=== PATIENT | female | born 1985 | race Caucasian/White ===

== ENCOUNTER 2020-12-09 11:52 | Inpatient (IN) ==
[2020-12-09] MEDS ORDERED: *HR* Nalbuphine 10 MG/ML AMPUL IV PRN (12:14)
[2020-12-09] MEDS ORDERED: Metoclopramide 10 MG/2 ML VIAL IVP PRN (12:14)
[2020-12-09] MEDS ORDERED: Naloxone 0.4 MG/ML INJ IVP PRN (12:14)
[2020-12-09] MEDS ORDERED: Famotidine 20 MG/2 ML VIAL IVP PRN (12:14)
[2020-12-09] MEDS ORDERED: Ondansetron 4 MG/2 ML VIAL IVP PRN (12:14)
[2020-12-09] MEDS ORDERED: Azithromycin 500 MG in 0.9 % Sodium Chloride 250 ML IVPB PRN (12:14)
[2020-12-09] MEDS ORDERED: Ringers Solution, Lactated 1,000 ML IVC SCH (12:15)
[2020-12-09 13:00] LABS: Basophils % 0.3 %; Eosinophils % 0.2 %; Hematocrit 36.6 % (35.3-44.9); Hemoglobin 11.9 g/dL (11.5-15.4); Immature Granulocytes % 0.8 % (0-4); Lymphocytes # 2.3 K/mcL (0.6-4.6); Lymphocytes % 23.8 %; Mean Corpuscular HGB Conc 32.5 g/dL (31.6-35.5); Mean Corpuscular Hemoglobin 28.3 pg (28.0-33.3); Mean Corpuscular Volume 87.1 fL (83.0-100.0); Mean Platelet Volume 10.8 fL (9.4-12.4); Monocytes # 0.6 K/mcL (0.0-1.3); Monocytes % 5.8 %; Neutrophils # 6.8 K/mcL (1.6-8.9); Platelet Count 284 K/mcL (140-400); Red Cell Distribution Width 14.1 % (11.5-14.5); Segmented Neutrophils % 69.1 %; White Blood Count 9.8 K/mcL (4.3-11.1)
[2020-12-09 13:09] LABS: Amphetamine Screen,Urine Negative ng/mL (Cutoff=1000); Barbiturate Screen,Urine Negative ng/mL (Cutoff=200); Benzodiazepines Screen,Urine Negative ng/mL (Cutoff=200); Cannabinoid Screen,Urine Negative ng/mL (Cutoff = 50); Cocaine Screen,Urine Negative ng/mL (Cutoff= 300); Opiate Screen,Urine Negative ng/mL (Cutoff=300); Phencyclidine Screen,Urine Negative ng/mL (Cutoff=25)
[2020-12-09] MEDS ORDERED: miSOPROStoL 25 MCG TABLET PO PRN (13:13)
[2020-12-09] MEDS ORDERED: Oxytocin 20 units/ LR 1000 mL 20 UNIT/1,000 ML BAG IVC SCH (18:15)
[2020-12-09] MEDS ORDERED: EPHEDrine 50 MG/ML VIAL IVP PRN (21:54)
[2020-12-09] MEDS ORDERED: Ropivacaine/PF 0.2% 20 ML VIAL EP ONE (21:54)
[2020-12-09] MEDS ORDERED: *HR* FentaNYL (PF) 100 MCG/2 ML VIAL EP ONE (21:54)
[2020-12-09] MEDS ORDERED: Ropivacaine/PF 0.2% 20 ML VIAL ONE (21:57)
[2020-12-09] MEDS ORDERED: *HR* FentaNYL (PF) 100 MCG/2 ML VIAL ONE (21:57)
[2020-12-09] MEDS ORDERED: Epidural Premix (fent/bupiv) 110 ML EP SCH (22:00)
[2020-12-10] MEDS ORDERED: Oxytocin 20 units/ LR 1000 mL 20 UNIT/1,000 ML BAG IVC ONE (03:32)
[2020-12-10] MEDS ORDERED: Benzocaine/Menthol 56 GM AEROSOL SPRAY TP PRN (03:32)
[2020-12-10] MEDS ORDERED: Oxytocin 20 units/ LR 1000 mL 20 UNIT/1,000 ML BAG IVC SCH (03:32)
[2020-12-10] MEDS ORDERED: Lanolin 7 G OINT...G. TP PRN (03:32)
[2020-12-10] MEDS: Prenatal Vit/FA 1 EACH TABLET PO SCH (08:56)
[2020-12-10] MEDS: Ibuprofen 600 MG TABLET PO PRN ×3 (08:57→20:59)
[2020-12-10] MEDS: Acetaminophen 325 MG TABLET PO PRN ×3 (08:59→20:59)
[2020-12-11] MEDS: Ibuprofen 600 MG TABLET PO PRN ×2 (02:59→08:47)
[2020-12-11] MEDS: Acetaminophen 325 MG TABLET PO PRN ×2 (03:00→08:47)
[2020-12-11 08:34] VITALS: BP 110/76
[2020-12-11] MEDS: Prenatal Vit/FA 1 EACH TABLET PO SCH (08:47)
== END 2020-12-11 11:49 | disposition home or self-care (01) | DRG 560 ==
LOC: 1NENULAB 11:52 → 1NENUOBS 12-10 03:11
PROVIDERS: ADMIT Advanced Practice Midwife; ATTEND Advanced Practice Midwife